=== PATIENT | male | born 1980 | race Caucasian/White ===

== ENCOUNTER 2025-04-12 14:55 | Emergency (ER) | payer OTHER ==
[~2025-04-12] VITALS: Ht 170.2 cm; Wt 65.8 kg
[2025-04-12 15:10] VITALS: BP 129/73; TEMP 98.1
[2025-04-12] MEDS ORDERED: ACET325C7 PO (15:47)
[2025-04-12] MEDS ORDERED: ONDA4TAB5 PO (15:47)
[2025-04-12] MEDS ORDERED: ONDANSETRON 4 MG TAB.RAPDIS ONE (15:54)
[2025-04-12] MEDS ORDERED: ACETAMINOPHEN 325 MG TABLET ONE (15:54)
[2025-04-12] MEDS: ONDANSETRON 4 MG TAB.RAPDIS SL ONE (15:57)
[2025-04-12] MEDS: ACETAMINOPHEN 325 MG TABLET PO ONE (15:57)
[2025-04-12 16:01] VITALS: O2SAT 98
== END 2025-04-12 16:02 | disposition home or self-care (01) ==
LOC: ER 15:18
DX: S01.81XA Laceration without foreign body of other part of head, initial encounter (principal); W26.8XXA Contact with other sharp object(s), not elsewhere classified, initial encounter; Y93.89 Activity, other specified; Y92.89 Other specified places as the place of occurrence of the external cause; Y99.9 Unspecified external cause status
CPT/HCPCS: 12013; 99283; Q0162